=== PATIENT | female | born 1940 | race Caucasian/White ===

== ENCOUNTER 2022-08-19 18:30 | Inpatient (IN) | payer MEDICARE, BC, SELFPAY ==
[2022-08-19 19:13] VITALS: BP 117/78; PULSE 113; RESP 18; TEMP 36.8; O2SAT 97; BMI 14.3
--- NOTE | 2022-08-19 20:03 | ECG_ITS ---
[facility] Test Date: 2022-08-19 Pat Name: Linda Oneil Department: Room: Gender: Female Servicenow Administrator: : 1940 Requested By: Laura Keenan Order Number: [id number] Lisa MD: Tsering Gallagher M.D. Measurements Intervals [place] Rate: 116 P: 55 MN: 121 QRS: -25 QRSD: 88 T: 54 QT: 318 QTc: 443 Interpretive Statements SINUS TACHYCARDIA BORDERLINE LEFT AXIS DEVIATION [QRS AXIS < -20] ABNORMAL RHYTHM ECG Compared to ECG 08/02/2014 18:29:59 Sinus rhythm no longer present Electronically Signed On 08-19-2022 23:40:33 MAILER APPRENTICE by Tsering Gallagher M.D. [id number]
--- NOTE | 2022-08-19 20:33 | W.ED.SOB ---
HPI - SOB/Dyspnea General: Chief Complaint: Shortness of Breath/Dyspnea Stated Complaint: SOB,cough,Congestion Time Seen by Provider: 08/19/22 20:33 History of Present Illness: HPI Narrative: Ms Oneil is a 82-year-old lady with history of idiopathic pulmonary fibrosis and chronic hypoxic respiratory failure presenting to the emergency department for generalized illness. She is accompanied by family who reports significant decline over the past few weeks. She has had about 2-week history of poor p.o. intake with watery diarrhea that has been near constant. She does endorse feeling weaker and more short of breath. She denies worsening cough or chest pain. Intensity symptoms is moderate to severe. She estimates approximately 20 pound weight loss over the past few months. No other specific changes in health, exacerbating, or alleviating factors identified. Patient lives at home however she does have a long-term family friend who lives with her and takes care of her including cooking. Onset (ago): week(s) Timing: progressively worsening Severity: severe Exacerbating factors: exertion Relieving factors: nothing Known history of: other Associated symptoms: Reports other (Diarrhea) Review of Systems General: Reports: 10 or more systems reviewed and unremarkable except in HPI and below PFSH ED PFSH: Medical History (Updated 08/19/22 @ 22:50 by Hu Sanchez MD) Chronic respiratory failure with hypoxia IPF (idiopathic pulmonary fibrosis) Surgical History (Updated 08/19/22 @ 20:47 by Hu Sanchez MD) History of appendectomy History of hysterectomy Physical Exam Const: COMMON NORMALS: alert GENERAL APPEARANCE: cooperative, ill appearing and frail appearing NUTRITIONAL APPEARANCE: cachectic OTHER: Evidence of temporal wasting and sunken eyes, patient is severely underweight. HENMT: COMMON NORMALS: normocephalic and atraumatic HEAD & SCALP: normocephalic and atraumatic Eye: COMMON NORMALS: conjunctivae normal CONJUNCTIVA: Yes conjunctivae normal SCLERA: sclerae normal Neck/C-Spine: COMMON NORMALS: supple GENERAL: Yes trachea midline Resp: EFFORT & INSPECTION: Yes tachypneic and Yes uses accessory muscles AUSCULTATION: diminished lung sounds OTHER: Supplemental oxygen in place Cardio: COMMON NORMALS: regular rhythm RATE: tachycardic RHYTHM: regular rhythm GI: COMMON NORMALS: Soft to palpation PALPATION: Yes Soft to palpation and No Tenderness to palpation present (GI) Extremity: NARRATIVE EXTREMITY EXAM: Severely atrophic musculature, thin extremities GENERAL: Yes normal exam except as noted and No edema Neuro: COMMON NORMALS: moves all extremities SENSORIUM/ORIENTATION: Yes alert and No Orientation impaired Psych: COMMON NORMALS: mental status grossly normal and Normal thought process present THOUGHT PROCESS: Normal thought process present Course Vital Signs: Vital signs: Vital Signs Temperature 98.2 F 08/19/22 19:13 Pulse Rate 118 H 08/19/22 21:14 Respiratory Rate 24 H 08/19/22 21:14 Blood Pressure 117/78 08/19/22 19:13 Pulse Oximetry 95 08/19/22 21:14 Oxygen Delivery Me thod 08/19/22 21:14 Oxygen Flow Rate 3.5 08/19/22 21:14 MDM - SOB/Dyspnea Medical Decision Making 82-year-old lady with what appears to be severe underlying lung disease reported to be IPF presenting to the emergency department for generalized illness. She primarily follows with pulmonology in [place]. Patient is quite frail and underweight on exam with evidence of temporal wasting. She has increased respiratory effort with respiratory distress. RT treatment ordered and steroids ordered. Patient has previously tolerated prednisone. EKG notable for sinus tachycardia with borderline axis, normal intervals, nonspecific ST segment abnormalities. No evidence of STEMI. ABG with likely respiratory alkalosis as compensation for metabolic acidosis with mild hypoxemia despite supplemental oxygen. Laboratory studies notable for leukocytosis, normal hemoglobin, thrombocytosis. Metabolic panel without significant electrolyte derangement. Glucose is elevated however no evidence of DKA. Initial troponin elevated with repeat pending. CRP and procalcitonin elevated. BNP elevated with unclear baseline. Albumin is low. Lactic acid elevated with repeat pending. I do not have comparison in our system with the exception of very remote comparison from 2014 and 2011. At that time metabolic and hematologic panel were essentially unremarkable. Chest x-ray based on my interpretation concerning for pneumonia. Given constellation of vital signs and laboratory studies as well as imaging studies antibiotics and fluid bolus ordered. Once again prior imaging studies reviewed though these are from 2017, 2014, and 2011. Lung disease has developed since that time as the 2014 chest x-ray was unremarkable. Given abnormality on the chest x-ray CT imaging is appropriate. Given diarrhea and degree of leukocytosis I feel that inclusion of the abdomen and pelvis is reasonable for evaluation of infection. CT imaging notable for severe lung disease with likely superimposed infection. No acute pathology identified in the abdomen contributing to symptoms at this time. Upon reassessment patient is mildly improved perhaps.. I had extensive discussion with the patient and family regarding superimposed illness on severe underlying lung disease including realistic possibility of from pneumonia with evidence of SIRS. I discussed possible disposition options and with soft recommendation for inpatient management as the more aggressive and safer option. The patient desires to be admitted for a short period of time to evaluate for response to antibiotics. Given evidence of pneumonia causing sepsis in the context of severe underlying comorbidities it is appropriate to admit the patient. She does have a strong wish to at home if she is going to . The results of ED evaluation were discussed with the patient including plan for admission due to requirement for level of care not available if discharged to prevent significant worsening/deterioration. Patient agreeable with plan. Discussed with hospitalist Dr Wiseman who was agreeable to admit patient. Medical Records I reviewed the patient's medical records. Lab Data I reviewed the patient's lab results. 08/19/22 21:20 08/19/22 21:20 Labs/Radiology: Radiology Impressions Chest X-Ray 08/19/22 20:42 IMPRESSION: Severe bilateral lung disease. Findings are nonspecific but are likely due in part to interstitial lung disease. The presence of consolidation in the left lung and fullness in the hilar region raise suspicion for superimposed infection or neoplasm. Recommend comparison with prior imaging if available. If prior imaging is not available, then chest CT is recommended. Chest/Abdomen/Pelvis CT 08/19/22 21:32 IMPRESSION: 1. Severe bilateral lung disease. Some component of fibrotic interstitial lung disease is suspected. The presence of extensive consolidation is suspicious for superimposed acute infection. 2. Incidental findings above. IMPRESSION: 1. No acute findings. 2. Incidental findings above. COMMENTS: Consistent with the [employer]'s Incidental Findings Committee white paper (J Am Kari Radiol 2018): Any incidental renal lesion less than 1 cm or classified as too small to characterize, or any incidental cystic renal lesion characterized as simple-appearing, is likely benign. No follow-up imaging is recommended for these lesions per consensus recommendations based on imaging criteria. Laboratory Results WBC 24.8 10^3/uL (4.0-10.0) H 08/19/22 21:20 RBC 4.05 10^6/uL (4.1-5.3) L 08/19/22 21:20 Hgb 12.2 g/dL (11.5-15.3) 08/19/22 21:20 Hct 39.3 % (37.0-47.0) 08/19/22 21:20 MCV 97.0 fl (81-99) 08/19/22 21:20 MCH 30.1 pg (28.0-34.0) 08/19/22 21:20 MCHC 31.0 g/dL (30.0-36.0) 08/19/22 21:20 RDW 13.6 % (12.1-15.1) 08/19/22 21:20 Plt Count 549 10^3/cmm (130-400) H 08/19/22 21:20 MPV 9.6 fL (7.4-10.4) 08/19/22 21:20 Neut % (Auto) 92.2 % 08/19/22 21:20 Lymph % (Auto) 3.8 % 08/19/22 21:20 [place] % (Auto) 3.1 % 08/19/22 21:20 Eos % (Auto) 0.0 % 08/19/22 21:20 Baso % (Auto) 0.2 % 08/19/22 21:20 Neut # (Auto) 22.80 10^3/uL (1.8-7.7) H 08/19/22 21:20 Lymph # (Auto) 1.0 10^3/uL (0.8-4.8) 08/19/22 21:20 [place] # (Auto) 0.8 10^3/uL (0.2-0.9) 08/19/22 21:20 Eos # (Auto) 0.0 10^3/uL (0.0-0.8) 08/19/22 21:20 Baso # (Auto) 0.1 10^3/uL (0.0-0.1) 08/19/22 21:20 Nucleated RBC % (auto) 0 % 08/19/22 21:20 Nucleated RBCs # 0.0 /100WBC 08/19/22 21:20 Specimen Type Arterial 08/19/22 21:12 Sample Site Brachial, right 08/19/22 21:12 ABG pH 7.48 (7.35-7.45) H 08/19/22 21:12 ABG pCO2 44.8 mmHg (35-45) 08/19/22 21:12 ABG pO2 75.0 mmHg (80.0-100.0) L 08/19/22 21:12 ABG HCO3 33.1 mmol/L (22-26) H 08/19/22 21:12 ABG Base Excess 8.5 mmol/L (-2.0-2.0) H 08/19/22 21:12 Adolfo Test N/a 08/19/22 21:12 Hematocrit 40.0 % (37-47) 08/19/22 21:12 O2 Delivery Device Nc 08/19/22 21:12 O2 Liters/Min 3.5 % 08/19/22 21:12 FiO2 35.0 % 08/19/22 21:12 Molded Grid And Parts Inspector ID Alewe 08/19/22 21:12 Sodium 136 mmol/L (136-145) 08/19/22 21:20 Potassium 4.8 mmol/L (3.5-5.1) 08/19/22 21:20 Chloride 94 mmol/L (98-107) L 08/19/22 21:20 Carbon Dioxide 29 mmol/L (22-29) 08/19/22 21:20 Anion Gap 17.8 (5-19) 08/19/22 21:20 BUN 17 mg/dL (8-23) 08/19/22 21:20 Creatinine 0.4 mg/dL (0.5-0.9) L 08/19/22 21:20 GFR Calculation Not Reportable 08/19/22 21:20 Glucose 230 mg/dL (65-115) H 08/19/22 21:20 Calculated Osmolality 291 mOsm/kg (285-295) 08/19/22 21:20 Lactic Acid 2.8 mmol/L (0.5-2.2) H 08/19/22 21:20 Calcium 9.0 mg/dL (8.5-10.5) 08/19/22 21:20 Magnesium 2.1 mg/dL (1.7-2.3) 08/19/22 21:20 Total Bilirubin 0.5 mg/dL (0.15-1.2) 08/19/22 21:20 AST 10 U/L (0-32) 08/19/22 21:20 ALT < 5 U/L (0-33) 08/19/22 21:20 Alkaline Phosphatase 119 U/L (35-105) H 08/19/22 21:20 Troponin T Baseline 32 ng/L (0-10) H 08/19/22 21:20 C-Reactive Protein 156.0 mg/L (0.0-4.9) H 08/19/22 21:20 NT-Pro-B Natriuret Pep 2043 pg/mL (0-450) H 08/19/22 21:20 Total Protein 8.6 g/dL (6.6-8.7) 08/19/22 21:20 Albumin 2.6 g/dL (3.5-5.2) L 08/19/22 21:20 Globulin 6.0 g/dL (1.3-4.6) H 08/19/22 21:20 Procalcitonin 0.76 ng/mL (0-0.5) H 08/19/22 21:20 TSH 0.98 uIU/mL (0.27-4.20) 08/19/22 21:20 Critical Care Time Critical Care Time: Critical Care Time: Yes Total Critical Care Time: 45 Attestation: Due to a high probability of clinically significant, possibly life threatening deterioration, the patient required my highest level of attention and preparedness to intervene emergently and I personally spent this critical care time directly and personally managing the patient. This critical care time included obtaining a history; examining the patient; pulse oximetry; ordering and review of laboratory and imaging studies; arranging urgent treatment with development of a management plan; evaluation of patient's response to treatment; frequent reassessment; and, discussions with other providers as applicable. It was exclusive of separately billable procedures. Primary systems involved are pulmonary and infectious disease Discharge Plan Discharge Patient Disposition: Admitted As Inpatient Admit Provider: Najma Wiseman Clinical Impression: Pneumonia, IPF (idiopathic pulmonary fibrosis), Chronic respiratory failure with hypoxia, Sepsis Condition: Stable Coding Level of Care Code ED Mycology Teacher for [facility] Fwd Exam Comprehensive
--- NOTE | 2022-08-19 20:42 | XRR_ITS ---
PROCEDURE INFORMATION: Exam: XR Chest Exam date and time: 08/19/2022 8:53 PM Age: 82 years old Clinical indication: Shortness of breath; Additional info: SOB, getting worse, HX of pulmonary fibrosis TECHNIQUE: Imaging protocol: Radiologic exam of the chest. Views: 1 view. COMPARISON: CR XR KUB [id number] 06/07/2017 3:05 PM FINDINGS: Airway: The trachea is displaced slightly to the right and is tortuous. Lungs: There is severe bilateral lung disease characterized by diffuse fine reticular opacity. There is dense opacity at the left lung base and superolateral left lung. Pleural spaces: There is no pleural effusion or pneumothorax. Heart/Mediastinum: The cardiac silhouette is normal in size. The left hilum is prominent. Bones/joints: There is thoracolumbar scoliosis. No acute fracture. XR/XR chest 1V portable [id number] IMPRESSION: Severe bilateral lung disease. Findings are nonspecific but are likely due in part to interstitial lung disease. The presence of consolidation in the left lung and fullness in the hilar region raise suspicion for superimposed infection or neoplasm. Recommend comparison with prior imaging if available. If prior imaging is not available, then chest CT is recommended.
--- NOTE | 2022-08-19 20:50 | ECG_ITS ---
[facility] Test Date: 2022-08-19 Pat Name: Linda Oneil Department: Room: Gender: Female Rand Maker: : 1940 Requested By: Hu Sanchez Order Number: [id number] Lisa MD: Tsering Gallagher M.D. Measurements Intervals [place] Rate: 114 P: 60 CO: 121 QRS: -32 QRSD: 86 T: 52 QT: 336 QTc: 463 Interpretive Statements SINUS TACHYCARDIA LEFT AXIS DEVIATION [QRS AXIS < -30] Compared to ECG 08/19/2022 20:03:24 No significant changes Electronically Signed On 08-19-2022 23:40:24 BRANCH CUSTOMER SERVICE REPRESENTATIVE by Tsering Gallagher M.D. [email or web address]/[id number]
[2022-08-19] MEDS: ipratropium 0.5 mg/2.5 mL Neb INHALATION (21:05)
[2022-08-19] MEDS: albuterol 2.5 mg/3 mL Neb INHALATION (21:06)
[2022-08-19 21:08] VITALS: PULSE 114; RESP 24; O2SAT 95
[2022-08-19 21:14] VITALS: PULSE 118; RESP 24; O2SAT 95
[2022-08-19 21:24] LABS: ABG PCO2 44.8 mmHg (35-45); ABG PH Result 7.48 (7.35-7.45); Base Excess ABG 8.5 mmol/L (-2.0-2.0); Blood Gas LPM 3.5 %; Blood Gas Sample Site Brachial, right; Blood Gas Sample Type Arterial; HCO3 ABG 33.1 mmol/L (22-26); Oxygen Device NC
--- NOTE | 2022-08-19 21:32 | CTR_ITS ---
PROCEDURE INFORMATION: Exam: CT Chest Without Contrast; Diagnostic Exam date and time: 08/19/2022 9:44 PM Age: 82 years old Clinical indication: Shortness of breath; Prior surgery; Surgery type: Appy. Hysterectomy. Patient HX: Severe SOB with persistent sputum production. Diarrhea. History of idiopathic pulmonary fibrosis. ; Additional info: SOB, abnormal cxr, diarrhea TECHNIQUE: Imaging protocol: Diagnostic computed tomography of the chest without contrast. Radiation optimization: All CT scans at this facility use at least one of these dose optimization techniques: automated exposure control; mA and/or kV adjustment per patient size (includes targeted exams where dose is matched to clinical indication); or iterative reconstruction. Other protocol: This patient has received 0 known CTs and 0 known cardiac nuclear medicine studies in the 12 months prior to the current study. COMPARISON: CR (CHEST, ) 08/19/2022 8:53 PM RADIATION DOSE METRICS: Total DLP (mGy-cm): 309.56 FINDINGS: Trachea: There is mild rightward tracheal displacement at the thoracic inlet. No thyroid mass. Lungs: Severe bilateral lung disease characterized by extensive subpleural predominant coarse reticular opacity and consolidation. There is mild peripheral traction bronchiectasis, greater on the left. No bronchial wall thickening. Pleural spaces: Unremarkable. No pneumothorax. No pleural effusion. Heart: Heart size is normal. There is no pericardial effusion. Coronary arteries: There is severe coronary artery calcification. Lymph nodes: There are prominent calcified left hilar lymph nodes. Vasculature: There is moderate aortic atherosclerotic disease. Bones/joints: Moderate broad-based thoracic kyphosis. No acute fracture. Soft tissues: Visible soft tissues are unremarkable. PROCEDURE INFORMATION: Exam: CT Abdomen And Pelvis Without Contrast Exam date and time: 08/19/2022 9:44 PM Age: 82 years old Clinical indication: Shortness of breath; Prior surgery; Surgery type: Appy. Hysterectomy. Patient HX: Severe SOB with persistent sputum production. Diarrhea. History of idiopathic pulmonary fibrosis. ; Additional info: SOB, abnormal cxr, diarrhea TECHNIQUE: Imaging protocol: Computed tomography of the abdomen and pelvis without contrast. Radiation optimization: All CT scans at this facility use at least one of these dose optimization techniques: automated exposure control; mA and/or kV adjustment per patient size (includes targeted exams where dose is matched to clinical indication); or iterative reconstruction. Other protocol: This patient has received 0 known CTs and 0 known cardiac nuclear medicine studies in the 12 months prior to the current study. COMPARISON: CR XR KUB [id number] 06/07/2017 3:05 PM RADIATION DOSE METRICS: Total DLP (mGy-cm): 309.56 FINDINGS: Limitations: Limited spatial and contrast resolution due to mild motion artifact, lack of intraperitoneal fat and lack of IV contrast. Liver: The liver is normal. Gallbladder and bile ducts: The gallbladder is absent. Bile ducts are not visible. Pancreas: There is marked atrophy of the pancreas. Spleen: Splenic size is normal. There are scattered calcifications consistent with healed granulomas. Adrenal glands: The adrenal glands are unremarkable. Kidneys and ureters: There is a simple cyst in the left kidney. There is no hydronephrosis or stones. The right kidney and ureter are unremarkable. Stomach and bowel: The stomach is unremarkable. The small bowel is nondilated. The colon is unremarkable. Appendix: The appendix is absent. Intraperitoneal space: There is no free air or significant intraperitoneal free fluid. Vasculature: There is severe aortic atherosclerotic disease. Lymph nodes: There is no lymphadenopathy in the retroperitoneum, mesentery, pelvis or inguinal regions. Urinary bladder: The urinary bladder is unremarkable. Reproductive: The uterus is absent. There is no adnexal mass or large cyst. Bones/joints: Moderate broad-based convex left lumbar scoliosis. No spondylolisthesis. Moderate lower lumbar facet spondylosis. No visible fracture. The pelvis and hips are unremarkable. Soft tissues: The abdominal wall is intact. CT/[place] [id number] IMPRESSION: 1. Severe bilateral lung disease. Some component of fibrotic interstitial lung disease is suspected. The presence of extensive consolidation is suspicious for superimposed acute infection. 2. Incidental findings above. IMPRESSION: 1. No acute findings. 2. Incidental findings above. COMMENTS: Consistent with the [employer]'s Incidental Findings Committee white paper (J Am Kari Radiol 2018): Any incidental renal lesion less than 1 cm or classified as too small to characterize, or any incidental cystic renal lesion characterized as simple-appearing, is likely benign. No follow-up imaging is recommended for these lesions per consensus recommendations based on imaging criteria.
[2022-08-19 21:36] LABS: Basophils # 0.1 10^3/uL (0.0-0.1); Basophils % 0.2 %; Hematocrit 39.3 % (37.0-47.0); Hemoglobin 12.2 g/dL (11.5-15.3); Lymphocytes % 3.8 %; Mean Corpuscular Hemoglobin 30.1 pg (28.0-34.0); Mean Platelet Volume 9.6 fL (7.4-10.4); Monocytes # 0.8 10^3/uL (0.2-0.9); Monocytes % 3.1 %; Neutrophils % 92.2 %; Nucleated Red Blood Cells % 0 %; Platelet Count 549 10^3/cmm (130-400); Red Blood Count 4.05 10^6/uL (4.1-5.3); Red Cell Distribution Width 13.6 % (12.1-15.1); White Blood Count 24.8 10^3/uL (4.0-10.0)
[2022-08-19 22:00] LABS: Troponin(5th) Baseline 32 ng/L (0-10)
[2022-08-19] MEDS: predniSONE 20 mg Tablet 40 MG PO (22:00)
[2022-08-19] MEDS: sodium chloride 0.9% 500 ML IV ×2 (22:00→22:50)
[2022-08-19 22:06] LABS: NT Pro B Type Natriuretic Pept 2043 pg/mL (0-450); Procalcitonin 0.76 ng/mL (0-0.5); Thyroid Stimulating Hormone 0.98 uIU/mL (0.27-4.20)
[2022-08-19 22:17] LABS: Alanine Aminotransferase < 5 U/L (0-33); Albumin Level 2.6 g/dL (3.5-5.2); Alkaline Phosphatase 119 U/L (35-105); Anion Gap 17.8 (5-19); Aspartate Amino Transferase 10 U/L (0-32); Blood Urea Nitrogen 17 mg/dL (8-23); Carbon Dioxide 29 mmol/L (22-29); Chloride 94 mmol/L (98-107); Glucose 230 mg/dL (65-115); Magnesium 2.1 mg/dL (1.7-2.3); Osmolality Calculated 291 mOsm/kg (285-295); Potassium 4.8 mmol/L (3.5-5.1); Sodium 136 mmol/L (136-145); Total Bilirubin 0.5 mg/dL (0.15-1.2); Total Protein 8.6 g/dL (6.6-8.7)
[2022-08-19 22:40] LABS: Lactic Sepsis W/Reflex 2.8 mmol/L (0.5-2.2)
--- NOTE | 2022-08-19 22:43 | ECG_ITS ---
[facility] Test Date: 2022-08-19 Pat Name: Linda Oneil Department: Room: Gender: Female Informatics Specialist: : 1940 Requested By: Hu Sanchez Order Number: [id number] Lisa MD: Tsering Gallagher M.D. Measurements Intervals [place] Rate: 117 P: 50 IN: 137 QRS: -28 QRSD: 86 T: 29 QT: 330 QTc: 462 Interpretive Statements SINUS TACHYCARDIA BORDERLINE LEFT AXIS DEVIATION [QRS AXIS < -20] ABNORMAL RHYTHM ECG Compared to ECG 08/19/2022 20:50:41 No significant changes Electronically Signed On 08-19-2022 23:47:45 FIREWALL ENGINEER by Tsering Gallagher M.D. [email or web address] [email or web address] health centerSuper Clean Jobsiteadena pike medical center.[employer]/store/OM/[id number]
[2022-08-19] MEDS: levofloxacin-dextrose 5 % 500 MG/100 ML PREMIX 100 MG IV (22:50)
[2022-08-19 22:52] LABS: Reflex Lactate Order REFLEX LACTIC ORDERD
[2022-08-19 22:54] LABS: Troponin 5 2HR 31.17 ng/L (0-10)
[2022-08-19 23:07] VITALS: BP 124/71; PULSE 115; RESP 16; O2SAT 94
[2022-08-19 23:13] LABS: Troponin 5 2HR Delta -0.83 ABS# (0-10)
--- NOTE | 2022-08-20 00:06 | PC.NURSE ---
Pt offered ordered tylenol. Pt states she doesn't need tylenol and is not in pain right now
[2022-08-20 00:07] VITALS: BP 99/61; PULSE 107; RESP 16; O2SAT 95
--- NOTE | 2022-08-20 00:16 | PM.HP ---
Providers/Chief Complaint Admitting Physician: Najma Wiseman MD Chief Complaint: SOB,cough,Congestion History of Present Illness Linda Oneil is an 82 year old female with PMh idiopathic pulmonary fibrosis typically on 4lpm supplemental 02, not on any chronic steroids but recently completed a one week course of prednisone last week. She is brought by family today due to increasing generalized weakness, weight loss of 25 pounds, poor appetite, cachexia and worsened cough with expectoration over the past 4 weeks. She denies any fever or chills. ROS+ for multiple episodes of diarrhea over the past 4 weeks, no known past h/o C diff. She mostly drinks water and coke, has not had an appetite. Her children checked in on her today and were concerned with her frail appearance and dehydration so brought her to the ED. She underwent CT CAP here which showed B/L pneumonia on top of known severe fibrosis. She has leukocytsois, tachycardia, elevated lactate today. Review of Systems General: Reports: 10 or more systems reviewed and unremarkable except in HPI and below Const: Denies: fever(s), chills or body aches Eyes: Denies: change in vision, blurry vision or photophobia ENMT: Reports: hoarseness; Denies: throat pain, enlarged tonsils, odynophagia or nasal congestion Card: Denies: chest pain, palpitations, irregular heart rhythm, edema, swelling of feet/ankles, lightheadedness, pre-syncope, dyspnea on exertion or orthopnea Resp: Denies: dyspnea, productive cough, non-productive cough, wheezing, stridor, pain on inspiration, change in phlegm color, hemoptysis or chest congestion GI: Denies: abdominal pain, nausea, vomiting, hematemesis, coffee ground emesis, dysphagia, heartburn, diarrhea, constipation, GI cramping, change in stool character, hematochezia or melena : Denies: flank pain, difficulty voiding, dysuria, urinary frequency, urinary urgency, urinary hesitancy or hematuria Musc: Denies: neck pain, back pain, extremity pain, joint swelling, joint warmth or deformity Neuro: Denies: headache(s), numbness in extremities, weakness in extremities, sensory changes, difficulty walking, frequent falls, dizziness, vertigo, behavioral changes, Slurred speech present or seizure-like activity Psych: Denies: anxiety, depression, suicidal ideation or homicidal ideation Endo: Denies: polyuria, polydipsia, tired all the time, cold intolerance or hot flashes Franco/Lymph: Denies: easy bruising or easy bleeding Medications/Allergies Allergies Allergy/AdvReac Type Severity Reaction Status Date / Time doxycycline Allergy ALGY-Anaphy Verified 08/19/22 19:30 laxis hydrocodone Allergy ADR-Gastrointestinal Verified 08/19/22 19:30 Upset hydromorphone [From Dilaudid] Allergy ADR-Gastrointestinal Verified 08/19/22 19:30 Upset indomethacin [From Indocin] Allergy ALGY-Anaphy Verified 08/19/22 19:30 laxis iodine Allergy ALGY-Anaphy Verified 08/19/22 19:30 laxis methylprednisolone Allergy ALGY-Anaphy Verified 08/19/22 19:30 [From Medrol] laxis Penicillins Allergy ALGY-Anaphy Verified 08/19/22 19:30 laxis Sulfa (Sulfonamide Allergy ALGY-Anaphy Verified 08/19/22 19:30 Antibiotics) laxis PFSH Acute PFSH: Medical History Chronic respiratory failure with hypoxia IPF (idiopathic pulmonary fibrosis) Surgical History History of appendectomy History of hysterectomy Vitals/I&O/Wt Last Vital Signs Temp 98.2 F 08/19/22 19:13 Pulse 107 H 08/20/22 00:07 Resp 16 08/20/22 00:07 BP 99/61 08/20/22 00:07 Pulse Ox 95 08/20/22 00:07 O2 Del Method 08/20/22 00:07 O2 Flow Rate 4 08/20/22 00:07 08/19/22 08/19/22 08/20/22 14:59 22:59 06:59 Intake Total 1100 / 1100 Balance 1100 / 1100 Weight last 48 hrs Weight 29.937 kg Physical Exam Narrative: General: frail cachexic woman, she has dry parched skin, gaunt appearance HEENT: PERRLA, pupils bilaterally equal and reactive, pallors not present Chest: crackles scattered CVS: S1-S2 regular, no murmurs, no tachycardia, no gallops, no rubs Abdomen: Soft, nontender, no organomegaly, bowel sounds present Neuro: moves all extremities in bed, alert, awake and oriented x 3 Extremities: dry parched skin, sunken eyes Data 08/19/22 21:20 08/19/22 21:20 Micro: Microbiology 08/19/22 21:25 Blood Culture - Preliminary Blood SPECIMEN COLLECTED 08/19/22 21:20 Blood Culture - Preliminary Blood SPECIMEN COLLECTED Other data: Radiology Impressions Chest X-Ray 08/19/22 20:42 IMPRESSION: Severe bilateral lung disease. Findings are nonspecific but are likely due in part to interstitial lung disease. The presence of consolidation in the left lung and fullness in the hilar region raise suspicion for superimposed infection or neoplasm. Recommend comparison with prior imaging if available. If prior imaging is not available, then chest CT is recommended. Chest/Abdomen/Pelvis CT 08/19/22 21:32 IMPRESSION: 1. Severe bilateral lung disease. Some component of fibrotic interstitial lung disease is suspected. The presence of extensive consolidation is suspicious for superimposed acute infection. 2. Incidental findings above. IMPRESSION: 1. No acute findings. 2. Incidental findings above. COMMENTS: Consistent with the [employer]'s Incidental Findings Committee white paper (J Am Kari Radiol 2018): Any incidental renal lesion less than 1 cm or classified as too small to characterize, or any incidental cystic renal lesion characterized as simple-appearing, is likely benign. No follow-up imaging is recommended for these lesions per consensus recommendations based on imaging criteria. Laboratory Results WBC 24.8 10^3/uL (4.0-10.0) H 08/19/22 21:20 RBC 4.05 10^6/uL (4.1-5.3) L 08/19/22 21:20 Hgb 12.2 g/dL (11.5-15.3) 08/19/22 21:20 Hct 39.3 % (37.0-47.0) 08/19/22 21:20 MCV 97.0 fl (81-99) 08/19/22 21:20 MCH 30.1 pg (28.0-34.0) 08/19/22 21:20 MCHC 31.0 g/dL (30.0-36.0) 08/19/22 21:20 RDW 13.6 % (12.1-15.1) 08/19/22 21:20 Plt Count 549 10^3/cmm (130-400) H 08/19/22 21:20 MPV 9.6 fL (7.4-10.4) 08/19/22 21:20 Neut % (Auto) 92.2 % 08/19/22 21:20 Lymph % (Auto) 3.8 % 08/19/22 21:20 Dukes % (Auto) 3.1 % 08/19/22 21:20 Eos % (Auto) 0.0 % 08/19/22 21:20 Baso % (Auto) 0.2 % 08/19/22 21:20 Neut # (Auto) 22.80 10^3/uL (1.8-7.7) H 08/19/22 21:20 Lymph # (Auto) 1.0 10^3/uL (0.8-4.8) 08/19/22 21:20 Dukes # (Auto) 0.8 10^3/uL (0.2-0.9) 08/19/22 21:20 Eos # (Auto) 0.0 10^3/uL (0.0-0.8) 08/19/22 21:20 Baso # (Auto) 0.1 10^3/uL (0.0-0.1) 08/19/22 21:20 Nucleated RBC % (auto) 0 % 08/19/22 21:20 Nucleated RBCs # 0.0 /100WBC 08/19/22 21:20 Specimen Type Arterial 08/19/22 21:12 Sample Site Brachial, right 08/19/22 21:12 ABG pH 7.48 (7.35-7.45) H 08/19/22 21:12 ABG pCO2 44.8 mmHg (35-45) 08/19/22 21:12 ABG pO2 75.0 mmHg (80.0-100.0) L 08/19/22 21:12 ABG HCO3 33.1 mmol/L (22-26) H 08/19/22 21:12 ABG Base Excess 8.5 mmol/L (-2.0-2.0) H 08/19/22 21:12 Adolfo Test N/a 08/19/22 21:12 Hematocrit 40.0 % (37-47) 08/19/22 21:12 O2 Delivery Device Nc 08/19/22 21:12 O2 Liters/Min 3.5 % 08/19/22 21:12 FiO2 35.0 % 08/19/22 21:12 Underwriting Support Specialist ID Ly 08/19/22 21:12 Sodium 136 mmol/L (136-145) 08/19/22 21:20 Potassium 4.8 mmol/L (3.5-5.1) 08/19/22 21:20 Chloride 94 mmol/L (98-107) L 08/19/22 21:20 Carbon Dioxide 29 mmol/L (22-29) 08/19/22 21:20 Anion Gap 17.8 (5-19) 08/19/22 21:20 BUN 17 mg/dL (8-23) 08/19/22 21:20 Creatinine 0.4 mg/dL (0.5-0.9) L 08/19/22 21:20 GFR Calculation Not Reportable 08/19/22 21:20 Glucose 230 mg/dL (65-115) H 08/19/22 21:20 Calculated Osmolality 291 mOsm/kg (285-295) 08/19/22 21:20 Lactic Acid 2.8 mmol/L (0.5-2.2) H 08/19/22 21:20 Calcium 9.0 mg/dL (8.5-10.5) 08/19/22 21:20 Magnesium 2.1 mg/dL (1.7-2.3) 08/19/22 21:20 Total Bilirubin 0.5 mg/dL (0.15-1.2) 08/19/22 21:20 AST 10 U/L (0-32) 08/19/22 21:20 ALT < 5 U/L (0-33) 08/19/22 21:20 Alkaline Phosphatase 119 U/L (35-105) H 08/19/22 21:20 Troponin T Baseline 32 ng/L (0-10) H 08/19/22 21:20 Troponin T 120 Minute 31.17 ng/L (0-10) H 08/19/22 22:20 Delta Troponin T -0.83 ABS# (0-10) L 08/19/22 22:20 C-Reactive Protein 156.0 mg/L (0.0-4.9) H 08/19/22 21:20 NT-Pro-B Natriuret Pep 2043 pg/mL (0-450) H 08/19/22 21:20 Total Protein 8.6 g/dL (6.6-8.7) 08/19/22 21:20 Albumin 2.6 g/dL (3.5-5.2) L 08/19/22 21:20 Globulin 6.0 g/dL (1.3-4.6) H 08/19/22 21:20 Procalcitonin 0.76 ng/mL (0-0.5) H 08/19/22 21:20 TSH 0.98 uIU/mL (0.27-4.20) 08/19/22 21:20 A&P Assessment and plan (1) Pneumonia: Severe bilateral lung disease. Also with consolidation, likely pneumonia on top of known pulmonary fibrosis Currently at baseline 02 requirement of 4lpm She has recently been saturating ~86% at home on 4lpm Started on treatment with levaquin in the ER, will add ceftriaxone 1g iv q24h and continue levaquin for atypical coverage. She has tolerated amoxicillin, ampicillin, cephalexin in the past without any issues. cannot exclude possible aspiration pneumonia given location of B/L infiltrates in dependent lower lobes and patient's fraility. Will obtain swallow eval pending covid PCR check sputum cx if able to expectorate Patient is significantly dehydrated, had had poor po intake going back several weeks, states she has a poor appetite. Will start her on NS @ 75 cc/hr Patient is set in her overall GOC. She wants to treat the current pneumonia with iv abx and iv hydration as needed and then wishes to transition to oral pills as soon as possible to be able to return home. Should her condition deteriorate ,she does NOT want any aggressive measures incl CPR,intubation, ICU care, pressors, lines etc. In that case she would just like to return home and let nature take its course. She states that she is aware that IPF will likely be her terminal diagnosis. She has not been considered a candidate for any treatment given her cachexia. This is per history- she follows with [facility] at [place]. I discussed referral to hospice since that appears to be most appropriate keeping her GOC in mind, however she declined services stating she had services with her but did not feel it was helpful. Her brother is her resident care technician in the home. Her children who are currently at bedside (Jacobo and Ann) would be her surrogate decision makers in case she cant decide for herself. (2) Chronic respiratory failure with hypoxia: currently at baseline 02 (3) IPF (idiopathic pulmonary fibrosis): not currently exacerbated, holding off on steroids, received prednisone 40 mg x 1 in the ER (4) Lactic acidosis: likely from dehydration will defer 2 hr lactate until am labs to minimize sticks per patient wishes (5) Dehydration: IVF NS @ 75 cc/hr (6) Malnutrition: Likely from poor oral intake Add Ensure to every meal not amenable to any feeding tubes even if caloric goals are not met Attestations Medical Necessity Statement*: Anticipate > 2midnight admission in patient with underlying lung disease, now with pneumonia with dehydration, needs iv antibiotics and iv FLuids Coding Level of Care Code Acute Code for g Fwd Diagnoses Pneumonia J18.9 Chronic respiratory failure with hypoxia J96.11 IPF (idiopathic pulmonary fibrosis) J84.112 Lactic acidosis E87.20 Dehydration E86.0 Malnutrition E46
[2022-08-20 00:27] LABS: Adenovirus Not Detected (NOT DETECT); Chlamydia Pneumoniae Not Detected (NOT DETECT); Coronavirus 229E,HKU1,NL63,OC4 Not Detected (NOT DETECT); Human Metapneumovirus Not Detected (NOT DETECT); Human Rhinovirus/Enterovirus Not Detected (NOT DETECT); Influenza A Not Detected (NOT DETECT); Influenza A H1 Not Detected (NOT DETECT); Influenza A H1-2009 Not Detected (NOT DETECT); Influenza A H3 Not Detected (NOT DETECT); Influenza B Not Detected (NOT DETECT); Mycoplasma Pneumoniae Not Detected (NOT DETECT); Parainfluenza Virus Type 1 Not Detected (NOT DETECT); Parainfluenza Virus Type 2 Not Detected (NOT DETECT); Parainfluenza Virus Type 3 Not Detected (NOT DETECT); Parainfluenza Virus Type 4 Not Detected (NOT DETECT); Respiratory Syncytial Virus A Not Detected (NOT DETECT); Respiratory Syncytial Virus B Not Detected (NOT DETECT); SARS-COV-2 Not Detected (NOT DETECT)
[2022-08-20 00:38] VITALS: TEMP 37.8
[2022-08-20 01:04] VITALS: PULSE 91; RESP 20; O2SAT 93
[2022-08-20] MEDS: enoxaparin 30 mg/0.3 mL Syringe SUBCUT (01:40)
[2022-08-20] MEDS: sodium chloride 0.9% 1,000 ML 75 ML IV (01:40)
[2022-08-20] MEDS: cefTRIAXone 1,000 MG in sodium chloride 0.9% (plus) 50 ML 100 MG IV (01:40)
[2022-08-20 01:50] VITALS: BP 99/63; PULSE 108; RESP 17; TEMP 36.4; O2SAT 95
[2022-08-20 03:38] VITALS: BP 100/60; PULSE 103; RESP 21; TEMP 36.3; O2SAT 94
[2022-08-20 04:43] LABS: Troponin 5 6HR 22.01 ng/L (0-10)
--- NOTE | 2022-08-20 05:16 | PC.NURSE ---
0500 patient pulled out IV catheter, remains alert and oriented X 4; patient refuses new IV catheter placement even after education provided on importance of receiving IV fluids ordered; NS @ 75 mL/hr stopped at this time
[2022-08-20 05:55] LABS: Basophils % 0.1 %; Hematocrit 32.5 % (37.0-47.0); Hemoglobin 10.2 g/dL (11.5-15.3); Lymphocytes # 0.7 10^3/uL (0.8-4.8); Lymphocytes % 3.4 %; Mean Corpuscular HGB Conc 31.4 g/dL (30.0-36.0); Mean Corpuscular Hemoglobin 30.2 pg (28.0-34.0); Mean Corpuscular Volume 96.2 fl (81-99); Mean Platelet Volume 10.1 fL (7.4-10.4); Monocytes # 0.2 10^3/uL (0.2-0.9); Monocytes % 1.1 %; Neutrophils % 94.9 %; Nucleated Red Blood Cells % 0 %; Platelet Count 510 10^3/cmm (130-400); Red Blood Count 3.38 10^6/uL (4.1-5.3); Red Cell Distribution Width 13.5 % (12.1-15.1); White Blood Count 20.9 10^3/uL (4.0-10.0)
[2022-08-20 06:08] LABS: Alanine Aminotransferase < 5 U/L (0-33); Albumin Level 2.2 g/dL (3.5-5.2); Alkaline Phosphatase 97 U/L (35-105); Anion Gap 14.1 (5-19); Aspartate Amino Transferase 8 U/L (0-32); Blood Urea Nitrogen 15 mg/dL (8-23); Carbon Dioxide 27 mmol/L (22-29); Chloride 99 mmol/L (98-107); Globulin 4.9 g/dL (1.3-4.6); Glucose 264 mg/dL (65-115); Osmolality Calculated 292 mOsm/kg (285-295); Potassium 4.1 mmol/L (3.5-5.1); Sodium 136 mmol/L (136-145); Total Bilirubin 0.2 mg/dL (0.15-1.2); Total Protein 7.1 g/dL (6.6-8.7)
[2022-08-20 06:26] LABS: Glucose Point of Care 218 mg/dL (70-110)
[2022-08-20 08:00] VITALS: BP 100/64; PULSE 103; PULSE 107; RESP 20; TEMP 36.4; O2SAT 94; O2SAT 95
[2022-08-20] MEDS: predniSONE 20 mg Tablet 60 MG PO (09:57)
[2022-08-20] MEDS: pantoprazole DR 40 mg Tablet PO (09:58)
[2022-08-20] MEDS: levoFLOXacin 500 mg Tablet PO (09:58)
--- NOTE | 2022-08-20 09:58 | PC.CHAP ---
Pastoral Care Encounter/Spiritual Assessment Type of Contact [] Declined turpentiner visit [] Patient/Family/Request visit [] Outpatient visit [] Follow-up visit [] Physician referral [] Code/Alert [x] Routine visit [] Staff referral [] Actively dying [] Patient sleeping [] Family support [] [] Out of room [] Palliative care [] [] Receiving care in room [] Pre-surgical visit [] Trauma [] Long length of stay [] ICU visit [x] Other:pre Relational/Emotional Strength [] Patient feels connected with others/family/visitors/staff [] Distress [] Loneliness/isolation [] Abandonment Spirituality of Patient [] Person of Lexis [] Attends Anabaptism of their Lexis [] Believes in Prayer [] Reads Bible or Hindu materials [] There are Spiritual issues to be addressed Agronomy Technician Interventions [] Prayer [] Active listening [] Non-anxious presence [] Spiritual/emotional support [] Crisis/trauma care [] Spiritual counseling [] Bereavement support [] Provided bereavement packet [] Provided Bible/devotional materials [] Provided toy/stuffed animal, coloring book to patient or family member [] Provided Communion [] Anointing/[place] [] Salvation [] Completed spiritual assessment [] Other: Impact on Illness or Injury [] Angry [] Fearful [] Anxious [] Often cries [] Exhaustion [] Unable to work [] Unable to attend quaker [] Unable to walk/stand [] Unable to read [] Unable to drive [] Unable to eat/drink [] Unable to sleep [] Unable to be with family [] Patient intubated [] Other: Summary Time spent with patient
--- NOTE | 2022-08-20 10:33 | PM.DCS ---
Discharge Providers Date of Admission: 08/19/22 22:51 Date of Discharge: August 20, 2022 Attending Provider at Admission: Najma Wiseman MD Attending Provider at Discharge: Luis Miguel Dangelo MD Diagnoses at Discharge Discharge Diagnosis (1) Pneumonia: Status: Acute (2) Chronic respiratory failure with hypoxia: Status: Acute (3) IPF (idiopathic pulmonary fibrosis): Status: Acute (4) Lactic acidosis: Status: Acute (5) Dehydration: Status: Acute (6) Malnutrition: Status: Acute Reason for Visit Reason for Visit: SOB,cough,Congestion Hospital Course Hospital Course This is a 82-year-old female with a past medical history of interstitial lung disease, idiopathic pulmonary fibrosis, diagnosed roughly 4 years ago, history of noninsulin-dependent type 2 diabetes mellitus, who presents to [facility] due to shortness of breath Patient was admitted to [facility] for shortness of breath, likely multifactorial from pneumonia, and exacerbation of her pulmonary fibrosis. Patient uses 2 L at baseline, during my examination patient was short of breath with a few words, intercostal retractions, nasal flaring, very mild respiratory distress. It was patient's wish to be DNR/DNI and she want to be discharged from the hospital. I had a detailed discussion with patient and family about hospitalization versus discharge home. It is patient's wish that she goes home, she does not want to here in the hospital she knows her diagnosis is terminal, but she is not ready to yet in her own words, she wants to continue medical interventions but wants to try to do them at home. She saw her of cancer, and she does not want to go through the, but she is hopeful, she tells me that she is broken the odds so far with a terminal diagnosis and has been around for the last 4 years, when Said that she only had a few months to live. She is not ready for hospice at this time. So she has pneumonia with signs of sepsis, I will discharge her on Levaquin 500 mg once daily for the next full 5 days, Tylenol for fevers. She does have a severe pulmonary fibrosis, interstitial lung disease exacerbation she has evidence of mild respiratory distress, shortness of breath with a few words, intercostal retractions and nasal flaring, tachypnea. And I am worried about a morbidity and mortality associated with it, she understands but in her own words she rather pass away at home. As she is not ready to in her own words she wants to continue to beat the odds, I am going to discharge her on high-dose steroids which are usually done in the hospital but as she is adamant about going home I am weary about discharging her with home dose steroids but this is the only option that we are left with. So I will discharge her on prednisone 125 mg for 4 remaining days, followed by a long prednisone taper. I am worried that she is getting suffers hyperglycemia possible DKA or HHS from high-dose steroids, but again patient is adamant about discharging home. Therefore I will discharge her on metformin 500 twice daily. In addition to a Humalog sliding scale, with instructions as below. Patient was advised to monitor blood sugars closely, if they are consistently above 500 with Humalog she should come back to the hospital. In addition I have discharged on Protonix and Carafate for GI prophylaxis she wants to have a primary care here in [facility] I will set her up with her primary care and with her communications field technician -I have discharged you on antibiotic therapy for your pneumonia -I have discharged you on high-dose steroids for your idiopathic pulmonary fibrosis exacerbation -Continue prednisone 125 mg once daily for 4 days -Then go down to longer prednisone taper 60 for 5 days, 50 for 5 days, 40 for 5 days, 30 for 5 days, 20 for 5 days, 10 for 5 days then stop -I have discharged you on Protonix and Carafate to protect your stomach from stomach ulcers as you are on high-dose steroids -Because you are on high-dose steroids your blood sugars going to run high so we have to monitor your blood sugars 3 times daily -Continue metformin 500 twice daily -Please start using Humalog if your blood sugars are greater than 300 consistently -Inject?humalog 3 times daily, after meals, based on sliding provided below -Insulin sliding fingerstick? Insulin 141-180?2 units/sq 181-220?4 units/sq 221-260?6 units/sq 261-300?8 units/sq 301-350 10 units/sq 351-400 12 units/sq > 400? 14 units/sq ? -Please monitor your blood sugars closely -Monitor your blood sugars 3 times daily as after meals -Please record your blood sugars, and a blood sugar log -For your NovoLog -Please inject blood sugar after meals based on sliding scale provided -Do not inject insulin if you do not eat as hypoglycemia kills -This is a NovoLog sliding scale -Insulin sliding ?fingerstick? Insulin ?141-180?2 units/sq 181-220?4 units/sq ?221-260?6 units/sq ?261-300?8 units/sq ?301-350 10 units/sq ?351-400 14 units/sq ??400-450? 16 units/sq 451-500 18 units/sq >500 go to ER -If your blood sugar is greater than 500 go to the emergency room -If your blood sugar is less than 60 or at anytime you feel lightheaded or dizzy or diaphoretic or have chest palpitations check your blood sugar, and eat a hard candy or drink orange juice and go immediately to the emergency room -Remember hypoglycemia kills, so if his blood sugar is less than 60 we have to increase it by taking in a sugary meal such as a hard candy or orange juice and go to the emergency room -If your blood sugars are consistently greater than 500 despite insulin therapy, come back to the emergency room -If you have any questions please call us where here to help -I have discharged albuterol for shortness of breath Physical Exam Const: COMMON NORMALS: no acute distress and patient oriented x3 Resp: COMMON NORMALS: normal respiratory effort, No retractions and No use of accessory muscles AUSCULTATION: diminished lung sounds diffuse OTHER: Intercostal retractions, nasal flaring, tachypnea, short of breath with a few words Cardio: COMMON NORMALS: regular rate, regular rhythm, S1 normal heart sound present and S2 normal heart sound present RATE: regular rate RHYTHM: regular rhythm HEART SOUNDS: S1 normal heart sound present and S2 normal heart sound present GI: COMMON NORMALS: Normal to inspection, nondistended, normoactive bowel sounds present and Soft to palpation PALPATION: Yes Soft to palpation Extremity: COMMON NORMALS: no pedal edema Neuro: COMMON NORMALS: patient oriented x3 Psych: COMMON NORMALS: mental status grossly normal Discharge Data Studies Completed and Pending Completed Studies During Hospitalization Category Date Time Status CT chest abdomen pelvis [[place] [id number] Cat Scan 08/19/22 21:32 Completed ] Stat XR chest 1V portable [id number] Stat Exams 08/19/22 20:42 Completed Pending at discharge Category Date Time Status Blood Culture Stat Lab 08/19/22 21:25 Results C DIFF [Clostridioides Difficile PCR] Routine Lab 08/20/22 01:01 Uncollected Hemoglobin A1C Timed Lab 08/21/22 08:00 Ordered Lactic Sepsis W/Reflex Timed Lab 08/21/22 08:00 Ordered Urinalysis Stat Lab 08/19/22 21:16 Ordered Radiology Impressions Chest X-Ray 08/19/22 20:42 IMPRESSION: Severe bilateral lung disease. Findings are nonspecific but are likely due in part to interstitial lung disease. The presence of consolidation in the left lung and fullness in the hilar region raise suspicion for superimposed infection or neoplasm. Recommend comparison with prior imaging if available. If prior imaging is not available, then chest CT is recommended. Chest/Abdomen/Pelvis CT 08/19/22 21:32 IMPRESSION: 1. Severe bilateral lung disease. Some component of fibrotic interstitial lung disease is suspected. The presence of extensive consolidation is suspicious for superimposed acute infection. 2. Incidental findings above. IMPRESSION: 1. No acute findings. 2. Incidental findings above. COMMENTS: Consistent with the [employer]'s Incidental Findings Committee white paper (J Am Kari Radiol 2018): Any incidental renal lesion less than 1 cm or classified as too small to characterize, or any incidental cystic renal lesion characterized as simple-appearing, is likely benign. No follow-up imaging is recommended for these lesions per consensus recommendations based on imaging criteria. Laboratory Results WBC 20.9 10^3/uL (4.0-10.0) H 08/20/22 04:16 RBC 3.38 10^6/uL (4.1-5.3) L 08/20/22 04:16 Hgb 10.2 g/dL (11.5-15.3) L 08/20/22 04:16 Hct 32.5 % (37.0-47.0) L 08/20/22 04:16 MCV 96.2 fl (81-99) 08/20/22 04:16 MCH 30.2 pg (28.0-34.0) 08/20/22 04:16 MCHC 31.4 g/dL (30.0-36.0) 08/20/22 04:16 RDW 13.5 % (12.1-15.1) 08/20/22 04:16 Plt Count 510 10^3/cmm (130-400) H 08/20/22 04:16 MPV 10.1 fL (7.4-10.4) 08/20/22 04:16 Neut % (Auto) 94.9 % 08/20/22 04:16 Lymph % (Auto) 3.4 % 08/20/22 04:16 [place] % (Auto) 1.1 % 08/20/22 04:16 Eos % (Auto) 0.0 % 08/20/22 04:16 Baso % (Auto) 0.1 % 08/20/22 04:16 Neut # (Auto) 19.80 10^3/uL (1.8-7.7) H 08/20/22 04:16 Lymph # (Auto) 0.7 10^3/uL (0.8-4.8) L 08/20/22 04:16 [place] # (Auto) 0.2 10^3/uL (0.2-0.9) 08/20/22 04:16 Eos # (Auto) 0.0 10^3/uL (0.0-0.8) 08/20/22 04:16 Baso # (Auto) 0.0 10^3/uL (0.0-0.1) 08/20/22 04:16 Nucleated RBC % (auto) 0 % 08/20/22 04:16 Nucleated RBCs # 0.0 /100WBC 08/20/22 04:16 Specimen Type Arterial 08/19/22 21:12 Sample Site Brachial, right 08/19/22 21:12 ABG pH 7.48 (7.35-7.45) H 08/19/22 21:12 ABG pCO2 44.8 mmHg (35-45) 08/19/22 21:12 ABG pO2 75.0 mmHg (80.0-100.0) L 08/19/22 21:12 ABG HCO3 33.1 mmol/L (22-26) H 08/19/22 21:12 ABG Base Excess 8.5 mmol/L (-2.0-2.0) H 08/19/22 21:12 Adolfo Test N/a 08/19/22 21:12 Hematocrit 40.0 % (37-47) 08/19/22 21:12 O2 Delivery Device Nc 08/19/22 21:12 O2 Liters/Min 3.5 % 08/19/22 21:12 FiO2 35.0 % 08/19/22 21:12 Bag Worker ID Ly 08/19/22 21:12 Sodium 136 mmol/L (136-145) 08/20/22 04:16 Potassium 4.1 mmol/L (3.5-5.1) 08/20/22 04:16 Chloride 99 mmol/L (98-107) 08/20/22 04:16 Carbon Dioxide 27 mmol/L (22-29) 08/20/22 04:16 Anion Gap 14.1 (5-19) 08/20/22 04:16 BUN 15 mg/dL (8-23) 08/20/22 04:16 Creatinine 0.3 mg/dL (0.5-0.9) L 08/20/22 04:16 GFR Calculation Not Reportable 08/20/22 04:16 Glucose 264 mg/dL (65-115) H 08/20/22 04:16 POC Glucose 218 mg/dL (70-110) H 08/20/22 06:11 Calculated Osmolality 292 mOsm/kg (285-295) 08/20/22 04:16 Lactic Acid 2.8 mmol/L (0.5-2.2) H 08/19/22 21:20 Calcium 8.0 mg/dL (8.5-10.5) L 08/20/22 04:16 Magnesium 2.1 mg/dL (1.7-2.3) 08/19/22 21:20 Total Bilirubin 0.2 mg/dL (0.15-1.2) 08/20/22 04:16 AST 8 U/L (0-32) 08/20/22 04:16 ALT < 5 U/L (0-33) 08/20/22 04:16 Alkaline Phosphatase 97 U/L (35-105) 08/20/22 04:16 Troponin T Baseline 32 ng/L (0-10) H 08/19/22 21:20 Troponin T 120 Minute 31.17 ng/L (0-10) H 08/19/22 22:20 Delta Troponin T -0.83 ABS# (0-10) L 08/19/22 22:20 Troponin T Hi Sens 6Hr 22.01 ng/L (0-10) H 08/20/22 04:16 Troponin T Hi Sens 6Hr Delta -9.99 ng/L (0-12) L 08/20/22 04:16 C-Reactive Protein 156.0 mg/L (0.0-4.9) H 08/19/22 21:20 NT-Pro-B Natriuret Pep 2043 pg/mL (0-450) H 08/19/22 21:20 Total Protein 7.1 g/dL (6.6-8.7) 08/20/22 04:16 Albumin 2.2 g/dL (3.5-5.2) L 08/20/22 04:16 Globulin 4.9 g/dL (1.3-4.6) H 08/20/22 04:16 Procalcitonin 0.76 ng/mL (0-0.5) H 08/19/22 21:20 TSH 0.98 uIU/mL (0.27-4.20) 08/19/22 21:20 Coronavirus 229E (PCR) Not detected (NOT DETECT) 08/19/22 22:43 SARS-CoV-2 (PCR) Not detected (NOT DETECT) 08/19/22 22:43 Vitals Last Vital Signs Temp 97.5 F L 08/20/22 08:00 Pulse 107 H 08/20/22 08:00 Resp 20 H 08/20/22 08:00 BP 100/64 08/20/22 08:00 Pulse Ox 95 08/20/22 08:00 O2 Del Method 08/20/22 08:00 O2 Flow Rate 3.5 08/20/22 08:00 Discharge Plan Discharge Patient Disposition: Home Condition: Fair Prescriptions: New sucralfate 1 gram Tablet 1 g PO Q12H 30 Days Qty: 60 0RF pantoprazole 40 mg Tablet,Delayed Release (Dr/Ec) 40 mg PO BID 30 Days Qty: 60 0RF levofloxacin 500 mg Tablet 500 mg PO DAILY@0600 5 Days Qty: 5 0RF Advair Diskus 500-50 mcg/dose blister with device 1 inh inhalation BID 30 Days Qty: 60 0RF ProAir HFA 90 mcg/actuation HFA aerosol inhaler 1 inh inhalation Q6H PRN (Reason: shortness of breath or wheezing) Qty: 8.5 0RF (DME) glucometer testing kit See Rx Instructions .Route .MEDSUPPLY Qty: 1 0RF Rx Instructions: Check blood sugars, 3 times daily Lancets #100 Strips #100 Humalog KwikPen Insulin 100 unit/mL insulin pen See Rx Instructions .ROUTE .COMPLEX Qty: 15 0RF Rx Instructions: Inject, subcut, 3 times daily, after meals, based on sliding scale provided Start using if blood sugars are greater than 300 prednisone 50 mg tablet 125 mg PO DAILY 4 Days Qty: 10 0RF Rx Instructions: start steroid taper after finishing prednisone 10 mg tablet See Rx Instructions .ROUTE .COMPLEX Qty: 105 0RF Rx Instructions: 6 tablets a day for 5 days, 5 tablets for 5 days, 4 tablets for 5 days, 3 tablet for 5 days, 2 tab for 5 days, 1 tab for 5 days Continued metformin 500 mg tablet 500 mg PO BID 30 Days Qty: 60 0RF Discontinued prednisone 10 mg tablet See Rx Instructions .ROUTE .COMPLEX Rx Instructions: 20mg po daily for 5 days then 10mg po daily for 5 days Discharge Orders: Discharge Order (Routine); Ordered 08/20/22 Ordered By: Luis Miguel Dangelo Referrals: YrisrTed MD [Physician] - 7-10 days Mike Voss MD [Physician] - 1-3 days Discharge Diet: Diabetic Discharge Activity: Resume usual activity Patient Instructions: Opioid Safety Activity Restrictions/Additional Instructions: -I have discharged you on antibiotic therapy for your pneumonia -I have discharged you on high-dose steroids for your idiopathic pulmonary fibrosis exacerbation -Continue prednisone 125 mg once daily for 4 days -Then go down to longer prednisone taper 60 for 5 days, 50 for 5 days, 40 for 5 days, 30 for 5 days, 20 for 5 days, 10 for 5 days then stop -I have discharged you on Protonix and Carafate to protect your stomach from stomach ulcers as you are on high-dose steroids -Because you are on high-dose steroids your blood sugars going to run high so we have to monitor your blood sugars 3 times daily -Continue metformin 500 twice daily -Please start using Humalog if your blood sugars are greater than 300 consistently -Inject?humalog 3 times daily, after meals, based on sliding provided below -Insulin sliding fingerstick? Insulin 141-180?2 units/sq 181-220?4 units/sq 221-260?6 units/sq 261-300?8 units/sq 301-350 10 units/sq 351-400 12 units/sq > 400? 14 units/sq ? -Please monitor your blood sugars closely -Monitor your blood sugars 3 times daily as after meals -Please record your blood sugars, and a blood sugar log -For your NovoLog -Please inject blood sugar after meals based on sliding scale provided -Do not inject insulin if you do not eat as hypoglycemia kills -This is a NovoLog sliding scale -Insulin sliding ?fingerstick? Insulin ?141-180?2 units/sq 181-220?4 units/sq ?221-260?6 units/sq ?261-300?8 units/sq ?301-350 10 units/sq ?351-400 12 units/sq > 400? 14 units/sq -If your blood sugar is greater than 500 go to the emergency room -If your blood sugar is less than 60 or at anytime you feel lightheaded or dizzy or diaphoretic or have chest palpitations check your blood sugar, and eat a hard candy or drink orange juice and go immediately to the emergency room -Remember hypoglycemia kills, so if his blood sugar is less than 60 we have to increase it by taking in a sugary meal such as a hard candy or orange juice and go to the emergency room -If you have any questions please call us where here to help -I have discharged albuterol for shortness of breath Discharge Attestations Time Spent in Discharge Care*: greater than 30 min Quality Metrics Clinical Quality Measures [ No reported AMI, CVA or VTE this stay] Coding Level of Care Code Acute Chg FW DC note Exam Detailed Diagnoses Pneumonia J18.9 Chronic respiratory failure with hypoxia J96.11 IPF (idiopathic pulmonary fibrosis) J84.112 Lactic acidosis E87.20 Dehydration E86.0 Malnutrition E46
[2022-08-20 10:51] LABS: Glucose Point of Care 289 mg/dL (70-110)
== END 2022-08-20 14:53 | disposition home or self-care (01) | DRG 194 ==
LOC: ER 22:50 → ICU 23:07 → MEDSURG 08-20 00:11
PROVIDERS: Admitting Provider Student in an Organized Health Care Education/Training Program; Emergency Provider Emergency Medicine; Visit Provider Family Medicine
DX: J18.9 Pneumonia, unspecified organism (principal); E46 Unspecified protein-calorie malnutrition; Z68.1 Body mass index [BMI] 19.9 or less, adult; J96.11 Chronic respiratory failure with hypoxia; E87.20 Acidosis, unspecified; J84.112 Idiopathic pulmonary fibrosis; E11.9 Type 2 diabetes mellitus without complications; Z66 Do not resuscitate; Z79.52 Long term (current) use of systemic steroids; E86.0 Dehydration
CPT/HCPCS: 36415; 36416; 36600; 71045; 71250; 74176; 80053; 82803; 82962; 83605; 83735; 83880; 84145; 84443; 84484; 85025; 86140; 87040; 87635; 92523; 92610; 93005; 94640; 96365; 96372; 99285; J0696; J1650; J1956; J7030; J7040; J7512; J7613; J7644

== ENCOUNTER → 2022-09-27 11:00 | Outpatient (BNVA) | payer MEDICARE, BC, SELFPAY | PROVIDERS: PCP Family Medicine Adult Medicine; Visit Provider Internal Medicine Pulmonary Disease | DX: J84.10 Pulmonary fibrosis, unspecified (principal); R06.02 Shortness of breath; Z91.89 Other specified personal risk factors, not elsewhere classified | CPT/HCPCS: 99214 ==

== ENCOUNTER 2022-10-05 06:41 | Outpatient (CLI) | payer MEDICARE, BC, SELFPAY ==
--- NOTE | 2022-10-05 07:00 | CT_ITS ---
WS: [id number] CT CHEST CT-HIGH RESOLUTION, NONCONTRAST. HISTORY: Interstitial lung disease. Technique: High-resolution chest CT is performed in inspiration, expiration, supine and prone positio baylee. All CT scans at [facility] [place] use at least one of these dose optimization techniques: automated exposure control; mA and/or kV adjustment per patient size (includes targeted exams where dose is mat ched to clinical indication); or iterative reconstruction. DLP: 773.85 mGy.cm COMPARISON: 08/19/2022 Findings: Lung volumes are normal. There is mild hyperexpansion of the RIGHT lung. Extensive reticula r interstitial thickening throughout both lungs. Honeycombing and traction bronchiectasis greater in the lower lung arana as expected for UIP. There are a few areas of mosaic attenuation. During expira tion there is very minimal change in lung volume. No focal nodule is identified. With prone positioni ng no improvement in the aeration. Very mild atherosclerosis aorta. Heart size is not enlarged. No adenopathy on this unenhanced exam. Splenic granulomata. Marked increase in thoracic kyphosis. Osteopenia. CT/CT chest wo con [id number] Impression: 1. Findings are most consistent with UIP. Changes of subpleural and basal celeste nant fibrosis with honeycombing and traction bronchiectasis. 2. No pneumonia identified.
== END 2022-10-05 06:42 | disposition home or self-care (01) ==
LOC: RAD 06:42
PROVIDERS: PCP Family Medicine Adult Medicine; Visit Provider Internal Medicine Pulmonary Disease
DX: J84.112 Idiopathic pulmonary fibrosis (principal); I70.0 Atherosclerosis of aorta; M40.294 Other kyphosis, thoracic region; M85.80 Other specified disorders of bone density and structure, unspecified site
CPT/HCPCS: 71250

== ENCOUNTER 2022-10-19 06:39 | Outpatient (CLI) | payer MEDICARE, BC, SELFPAY | END 2022-10-19 06:40 | disposition home or self-care (01) | LOC: RT 06:40 | PROVIDERS: PCP Family Medicine Adult Medicine; Visit Provider Internal Medicine Pulmonary Disease | DX: J84.112 Idiopathic pulmonary fibrosis (principal); J44.9 Chronic obstructive pulmonary disease, unspecified; J96.11 Chronic respiratory failure with hypoxia | CPT/HCPCS: 94010; 94618; 94729 ==

== ENCOUNTER → 2022-12-23 14:52 | Outpatient (BNVA) | payer MEDICARE, BC, SELFPAY | PROVIDERS: PCP Family Medicine Adult Medicine; Visit Provider Family Medicine Adult Medicine | DX: E11.9 Type 2 diabetes mellitus without complications (principal); E46 Unspecified protein-calorie malnutrition; J20.9 Acute bronchitis, unspecified; J42 Unspecified chronic bronchitis; R05.3 Chronic cough | CPT/HCPCS: 71046; 80053; 83036; 85025 ==

== ENCOUNTER → 2023-05-03 09:15 | Outpatient (BNVA) | payer MEDICARE, BC, SELFPAY | PROVIDERS: PCP Family Medicine Adult Medicine; Visit Provider Family Medicine Adult Medicine | DX: E11.9 Type 2 diabetes mellitus without complications (principal); J20.9 Acute bronchitis, unspecified; J42 Unspecified chronic bronchitis; E78.5 Hyperlipidemia, unspecified | CPT/HCPCS: 80053; 80061; 83036 ==

== ENCOUNTER → 2023-05-10 14:09 | Outpatient (BNVA) | payer MEDICARE, BC, SELFPAY | PROVIDERS: PCP Family Medicine Adult Medicine; Visit Provider Internal Medicine Pulmonary Disease | DX: R05.8 Other specified cough (principal); J84.10 Pulmonary fibrosis, unspecified; Z91.89 Other specified personal risk factors, not elsewhere classified; K59.00 Constipation, unspecified; L65.9 Nonscarring hair loss, unspecified; K11.9 Disease of salivary gland, unspecified | CPT/HCPCS: 99214 ==

== ENCOUNTER → 2023-07-01 09:49 | Outpatient (BNVA) | payer MEDICARE, BC, SELFPAY | PROVIDERS: PCP Family Medicine Adult Medicine; Visit Provider Internal Medicine Pulmonary Disease | DX: J84.10 Pulmonary fibrosis, unspecified (principal); Z91.89 Other specified personal risk factors, not elsewhere classified; K21.9 Gastro-esophageal reflux disease without esophagitis; Z99.81 Dependence on supplemental oxygen; K11.7 Disturbances of salivary secretion | CPT/HCPCS: 99214 ==

== ENCOUNTER → 2024-07-09 15:30 | Outpatient (BNVA) | payer BC, SELFPAY | PROVIDERS: PCP Family Medicine; Visit Provider Family Medicine | DX: E11.610 Type 2 diabetes mellitus with diabetic neuropathic arthropathy (principal); Z79.4 Long term (current) use of insulin; H61.23 Impacted cerumen, bilateral; E44.0 Moderate protein-calorie malnutrition | CPT/HCPCS: 80053; 83036; 85025 ==